=== PATIENT | female | born 1950 | race Caucasian/White ===

== ENCOUNTER 2021-07-23 13:08 | Emergency (ER) | payer MEDICARE ==
[2021-07-23 14:09] VITALS: RESP 18
[2021-07-23] MEDS ORDERED: KETOROLAC 15 MG/ML 1 ML VIAL IVP STA (15:54)
[2021-07-23] MEDS ORDERED: SODIUM CHLORIDE 0.9% 50 ML IVPB ONE (16:00)
[2021-07-23] MEDS ORDERED: BAMLANIVIMAB (EUA) 700 MG, ETESEVIMAB (EUA) 1,400 MG in SODIUM CHLORIDE 0.9% 100 ML IVPB ONE (16:30)
--- NOTE | 2021-07-23 16:33 | ED ---
URI HPI - General Source: patient Mode of arrival: ambulatory Limitations: no limitations <Celina Deras - Last Filed: 07/23/21 16:30> <Alonzo Schwartz - Last Filed: 07/23/21 17:38> - General Chief Complaint: Upper Respiratory Infection Stated Complaint: covid+, SOB Time Seen by Provider: 07/23/21 15:36 - History of Present Illness Initial Comments: 71-year-old female patient presents to the emergency department today for evaluation of body aches, weakness, chills. States she has mild congestion and cough. Denies shortness of breath or chest pain. States she has been taking Tylenol Motrin for fever. She did test positive for COVID on a home test. She states she does have a remote history of asthma who does not have take medication for her. She is otherwise healthy. Her is sick with similar symptoms. She denies any nausea, vomiting, or diarrhea. States she is eating and drinking without difficulty. (Celina Deras) - Related Data Allergies Allergy/AdvReac Type Severity Reaction Status Date / Time Sulfa (Sulfonamide Allergy Unknown Verified 07/23/21 14:08 Antibiotics) Review of Systems ROS Other: All systems not noted in ROS Statement are negative. <Celina Deras - Last Filed: 07/23/21 16:30> ROS Other: All systems not noted in ROS Statement are negative. <Alonzo Schwartz - Last Filed: 07/23/21 17:38> ROS Statement: Those systems with pertinent positive or pertinent negative responses have been documented in the HPI. Past Medical History Past Medical History: No Reported History History of Any Multi-Drug Resistant Organisms: None Reported Past Surgical History: Bariatric Surgery, Orthopedic Surgery Additional Past Surgical History / Comment(s): knee replacement, shoulder Past Psychological History: Depression Smoking Status: Never smoker Past Alcohol Use History: None Reported Past Drug Use History: None Reported <Celina Deras - Last Filed: 07/23/21 16:30> General Exam Limitations: no limitations General appearance: alert, in no apparent distress, other (This is a well- developed, well-nourished elderly female patient in no acute distress.) ENT exam: Present: normal exam, normal oropharynx, mucous membranes moist Respiratory exam: Present: normal lung sounds bilaterally. Absent: respiratory distress, wheezes, rales, rhonchi, stridor Cardiovascular Exam: Present: regular rate, normal rhythm, normal heart sounds. Absent: systolic murmur, diastolic murmur, rubs, gallop, clicks GI/Abdominal exam: Present: soft, normal bowel sounds. Absent: distended, tenderness, guarding, rebound, rigid Neurological exam: Present: alert, oriented X3, CN II-XII intact Psychiatric exam: Present: normal affect, normal mood Skin exam: Present: warm, dry, intact, normal color. Absent: rash <Celina Deras - Last Filed: 07/23/21 16:30> Course Vital Signs 07/23/21 07/23/21 14:03 16:43 Temperature 98.6 F 97.8 F Pulse Rate 100 76 Respiratory 18 18 Rate Blood Pressure 130/82 135/60 O2 Sat by Pulse 96 98 Oximetry Medical Decision Making <Celina Deras - Last Filed: 07/23/21 16:30> - Medical Decision Making 71-year-old female patient presented requesting monoclonal antibody infusion after having a positive home COVID-19 test. Physical examination is unremarkable. Lungs are clear to auscultation. Vital signs are unremarkable. She did test positive here as well. She was given antibody infusion. She'll be discharged follow-up with her primary care physician for recheck in 1-2 days. R eturn parameters were discussed in detail. She verbalizes understanding and agrees with this plan. My attending is Dr. Aguilar. (Celina Deras) - Lab Data Lab Results 07/23/21 Range/Units 14:11 Coronavirus (PCR) Detected A (Not Detectd) Disposition Is patient prescribed a controlled substance at d/c from ED?: No <Celina Deras - Last Filed: 07/23/21 16:30> Time of Disposition: 17:38 <Alonzo Schwartz - Last Filed: 07/23/21 17:38> Clinical Impression: COVID-19 Disposition: HOME SELF-CARE Condition: Good Instructions (If sedation given, give patient instructions): Coronavirus Disease 2019 (COVID-19) Additional Instructions: Tips to help you feel better: -Maintain adequate fluid intake - especially water. -Rest, you are healing your body will require extra sleep. -Eat even if you do not feel like it - broth, jello, toast are fine if you cannot eat full meals. -Take tylenol and motrin alternating (if you have no allergies or have not been instructed to avoid these medications) to help with body aches and fevers. -Obtain over the counter vitamin C, zinc, and vitamin D3. -Take medications as prescribed. Follow-up with your primary care physician for recheck in 1-2 days. Return for any new, worsening, or concerning symptoms. Referrals: Olaf Vazquez MD [Primary Care Provider] - 1-2 days
[2021-07-23 16:44] VITALS: BP 135/60; PULSE 76; TEMP 97.8
== END 2021-07-23 17:52 | disposition home or self-care (01) ==
LOC: EC 13:08
DX: U07.1 COVID-19 (principal); Z88.2 Allergy status to sulfonamides
CPT/HCPCS: 87635; 99285; 96374; J1885; J3490